=== PATIENT | male | born 1950 | race Caucasian/White ===

== ENCOUNTER 2021-07-08 18:04 | Emergency (ER) | payer BC, MEDICARE, OTHER ==
[2021-07-08 19:00] LABS: ANION GAP 10.3 mmol/L (5-15)
[2021-07-08] MEDS ORDERED: Sodium Chloride 0.9% 1,000 ML IV ONE (19:23)
[2021-07-08 19:31] LABS: CORONAVIRUS COVID-19 NAA NEGATIVE (NEGATIVE)
[2021-07-08] MEDS ORDERED: Iopamidol 755 Mg/ML 100 ML Bottle IV ONE (19:54)
[2021-07-08] MEDS ORDERED: Sodium Chloride 0.9% 50 ML IV SCH (20:00)
[2021-07-08] MEDS ORDERED: Codeine/guaiFENesin 10-100 MG/5 ML Syrup 5 ML Cup PO ONE (20:35)
[2021-07-08] MEDS ORDERED: Benzonatate 100 MG Cap PO ONE (20:35)
== END 2021-07-08 21:10 | disposition home or self-care (01) ==
LOC: KA.ED 18:04
DX: R05.9 Cough, unspecified (principal); E11.9 Type 2 diabetes mellitus without complications; R06.02 Shortness of breath; R79.89 Other specified abnormal findings of blood chemistry; E78.00 Pure hypercholesterolemia, unspecified; I10 Essential (primary) hypertension; K21.9 Gastro-esophageal reflux disease without esophagitis; M19.90 Unspecified osteoarthritis, unspecified site; Z88.0 Allergy status to penicillin; Z79.4 Long term (current) use of insulin; Z79.899 Other long term (current) drug therapy; Z20.822 Contact with and (suspected) exposure to COVID-19
CPT/HCPCS: 0240U; 36415; 71046; 71275; 80053; 83880; 84484; 85025; 85379; 87040; 93010; 99284; 99284-25; A9270-GY; J7030; Q9967